=== PATIENT | male | born 1985 | race Asian ===

== ENCOUNTER 2021-08-27 05:13 | Inpatient (IN) | payer SELFPAY ==
[~2021-08-27] VITALS: Ht 175.3 cm; Wt 90.7 kg
[2021-08-27] VITALS (17 sets, daily range): BP systolic 99–135; BP diastolic 47–82
[2021-08-27] MEDS ORDERED: fentaNYL INJ 100 MCG/2 ML AMP IVP ONE (06:30)
[2021-08-27] MEDS ORDERED: LIDOCAINE UROJET 2% GEL 10 ML PKG TOP ONE (06:30)
--- NOTE | 2021-08-27 06:48 | ED General ---
General Chief Complaint: Abdominal/GI Problems Stated Complaint: CONSTIPATED Nursing Triage Note: Pt arrives via POV from home for c/o constipation x4 days et inability to urinate x24hrs; states he was given medication at urgent care without relief; also took "an sing[place]an home remedy" states had a liquid BM after this. Source of Information: Patient Exam Limitations: No Limitations History of Present Illness Date Seen by Provider: Aug 27, 2021 Time Seen by Provider: 18:05 Initial Comments This 36-year-old gentleman presents to the emergency room with complaints of lower abdominal and rectal pain, no significant bowel movement for 4 days, inability to urinate with notable urge, and tenderness in the anal region. He denies fever. He reports taking a powdered oral home remedy to try to treat constipation. He had a couple of small watery bowel movements but no significant bowel movements. He was seen in urgent care clinic yesterday and told he had some blood in his stool. He was advised to go to the emergency room. He reports being relatively healthy and never having any problems like this in the past. He denies any genital involvement. He takes no medications and has had no surgeries. He is afebrile. Bladder scan showed about 350 mL of retained urine. Patient states with his immigration medical exam over a month ago. Allergies and Home Medications Allergies Coded Allergies: No Known Drug Allergies (Unverified , 08/27/21) Patient Home Medication List Home Medication List Reviewed: Yes Review of Systems Review of Systems Constitutional: no symptoms reported EENTM: no symptoms reported Respiratory: no symptoms reported Cardiovascular: no symptoms reported Gastrointestinal: see HPI Genitourinary: see HPI Musculoskeletal: no symptoms reported Skin: see HPI Psychiatric/Neurological: No Symptoms Reported Hematologic/Lymphatic: No Symptoms Reported Immunological/Allergic: no symptoms reported Past Mvremms-Ohqhdn-Tdwest Hx Patient Social History Tobacco Use?: No Smoking Status: Former Smoker Use of E-Cig and/or Vaping dev: No Substance use?: No Alcohol Use?: No Pt feels they are or have been: No Immunizations Up To Date Influenza Vaccine Up-to-Date: Yes; Up-to-Date COVID19 Vaccine Canoe [employer]: Moderna Past Medical History Surgeries: No Respiratory: No Cardiac: No Neurological: No Reproductive Disorders: No Genitourinary: No Gastrointestinal: No Musculoskeletal: No Endocrine: No HEENT: No Cancer: No Psychosocial: No Integumentary: No Physical Exam Vital Signs Vital Signs - First Documented 08/27/21 05:55 Temp 36.8 Pulse 114 Resp 20 B/P (MAP) 136/97 (110) Pulse Ox 100 O2 Delivery Room Air Capillary Refill : Less Than 3 Seconds Height, Weight, BMI Height: '" Weight: lbs. oz. kg; 29.00 BMI Method: General Appearance: WD/WN, Mild Distress HEENT: Normal ENT Inspection Neck: Normal Inspection Respiratory: Lungs Clear, Normal Breath Sounds, No Accessory Muscle Use Cardiovascular: Regular Rate, Rhythm, No Edema, No Murmur Gastrointestinal: Normal Bowel Sounds, Non Tender, Soft; No Distended Rectal: Other (Perianal tenderness with erythema, induration, and severe tenderness of the right buttock near the anus. No overt superficial abscess is apparent. No bleeding or drainage identified.) Extremity: Normal Inspection, No Pedal Edema Neurologic/Psychiatric: Alert, Oriented x3, No Motor/Sensory Deficits, Normal Mood/Affect, career services representative II-XII Norm as Tested Skin: Normal Color, Warm/Dry Focused Exam Lactate Level 08/27/21 07:52: Lactic Acid Level Laboratory Tests Test 08/27/21 07:52 Progress/Results/Core Measures Suspected Sepsis SIRS Temperature: Pulse: 114 Respiratory Rate: 20 Laboratory Tests 08/27/21 06:53: White Blood Count 21.4H Blood Pressure 136 /97 Mean: 110 08/27/21 07:52: Laboratory Tests 08/27/21 06:53: Creatinine 1.22, Platelet Count 306, Total Bilirubin 1.2H 08/27/21 08:20: Results/Orders Lab Results Laboratory Tests Test 08/27/21 06:04 08/27/21 06:53 08/27/21 07:52 08/27/21 08:20 Range/Units Urine Color ORANGE Urine Clarity SL CLOUDY Urine pH 6.0 5-9 Urine Specific Randall 1.020 1.016-1.022 Urine Protein 1+ H NEGATIVE Urine Glucose (UA) NEGATIVE NEGATIVE Urine Ketones TRACE H NEGATIVE Urine Nitrite NEGATIVE NEGATIVE Urine Bilirubin NEGATIVE NEGATIVE Urine Urobilinogen 0.2 < = 1.0 MG/DL Urine Leukocyte Esterase NEGATIVE NEGATIVE Urine RBC (Auto) 1+ H NEGATIVE Urine RBC 0-2 /HPF Urine WBC NONE /HPF Urine Squamous Epithelial Cells 0-2 /HPF Urine Crystals NONE /LPF Urine Bacteria TRACE /HPF Urine Casts NONE /LPF Urine Mucus SMALL H /LPF Urine Culture Indicated NO White Blood Count 21.4 H 4.3-11.0 10^3/uL Red Blood Count 4.97 4.30-5.52 10^6/uL Hemoglobin 14.8 13.3-17.7 g/dL Hematocrit 43 40-54 % Mean Corpuscular Volume 86 80-99 fL Mean Corpuscular Hemoglobin 30 25-34 pg Mean Corpuscular Hemoglobin Concent 35 32-36 g/dL Red Cell Distribution Width 11.9 10.0-14.5 % Platelet Count 306 130-400 10^3/uL Mean Platelet Volume 9.8 9.0-12.2 fL Immature Granulocyte % (Auto) 1 % Neutrophils (%) (Auto) 89 H 42-75 % Lymphocytes (%) (Auto) 4 L 12-44 % Monocytes (%) (Auto) 5 0-12 % Eosinophils (%) (Auto) 0 0-10 % Basophils (%) (Auto) 0 0-10 % Neutrophils # (Auto) 19.0 H 1.8-7.8 10^3/uL Lymphocytes # (Auto) 0.9 L 1.0-4.0 10^3/uL Monocytes # (Auto) 1.2 H 0.0-1.0 10^3/uL Eosinophils # (Auto) 0.0 0.0-0.3 10^3/uL Basophils # (Auto) 0.1 0.0-0.1 10^3/uL Immature Granulocyte # (Auto) 0.3 H 0.0-0.1 10^3/uL Neutrophils % (Manual) 90 % Lymphocytes % (Manual) 2 % Monocytes % (Manual) 6 % Band Neutrophils 2 % Blood Morphology Comment NORMAL Sodium Level 132 L 135-145 MMOL/L Potassium Level 3.7 3.6-5.0 MMOL/L Chloride Level 97 L 98-107 MMOL/L Carbon Dioxide Level 22 21-32 MMOL/L Anion Gap 13 5-14 MMOL/L Blood Urea Nitrogen 12 7-18 MG/DL Creatinine 1.22 0.60-1.30 MG/DL Estimat Glomerular Filtration Rate 67 BUN/Creatinine Ratio 10 Glucose Level 104 70-105 MG/DL Calcium Level 9.7 8.5-10.1 MG/DL Corrected Calcium 9.7 8.5-10.1 MG/DL Total Bilirubin 1.2 H 0.1-1.0 MG/DL Aspartate Amino Transf (AST/SGOT) 28 5-34 U/L Alanine Aminotransferase (ALT/SGPT) 49 0-55 U/L Alkaline Phosphatase 109 40-136 U/L C-Reactive Protein High Sensitivity 21.47 H 0.00-0.50 MG/DL Total Protein 8.1 6.4-8.2 GM/DL Albumin 4.0 3.2-4.5 GM/DL My Orders Orders - ION GARDNER MD Bladder Scan (08/27/21 06:04) Ua Culture If Indicated (08/27/21 06:04) Abdomen/Kub 1view (08/27/21 06:04) Lidocaine 2% (Urojet) (Xylocaine Urojet) (08/27/21 06:30) Fentanyl Inj (Sublimaze Injection) (08/27/21 06:30) Cbc With Automated Diff (08/27/21 06:23) Comprehensive Metabolic Panel (08/27/21 06:23) Hs C Reactive Protein (08/27/21 06:23) Ed Iv/Invasive Line Start (08/27/21 06:23) Manual Differential (08/27/21 06:53) Morphine Injection (Morphine Injection (08/27/21 07:14) Ct Abdomen/Pelvis W (08/27/21 07:16) Iohexol Injection (Omnipaque 350 Mg/Ml 1 (08/27/21 07:45) Received Contrast (Hold Metformin- Contr (08/27/21 07:45) Sodium Chloride Flush (Catheter Flush Sy (08/27/21 07:45) Ns (Ivpb) (Sodium Chloride 0.9% Ivpb Bag (08/27/21 07:45) Blood Culture (08/27/21 07:39) Protime With Inr (08/27/21 07:39) Partial Thromboplastin Time (08/27/21 07:39) Vital Signs Adult Sepsis Patie Q15M (08/27/21 07:39) Remove Rings In Anticipation O (08/27/21 07:39) Lactic Acid Analyzer (08/27/21 07:39) Piperacillin Sodium/Tazobactam (Zosyn Vi (08/27/21 07:45) Hydromorphone Injection (Dilaudid Inject (08/27/21 08:15) Ns Iv 1000 Ml (Sodium Chloride 0.9%) (08/27/21 08:30) Medications Given in ED Current Medications Medications Dose Ordered Sig/Lenny Route Start Time Stop Time Status Last Admin Dose Admin Fentanyl Citrate 50 mcg ONCE ONCE IVP 08/27/21 06:30 08/27/21 06:32 DC 08/27/21 06:47 50 MCG Hydromorphone HCl 0.5 mg ONCE ONCE IV 08/27/21 08:15 08/27/21 08:16 DC 08/27/21 08:21 0.5 MG Iohexol 100 ml ONCE ONCE IV 08/27/21 07:45 08/27/21 07:46 DC 08/27/21 07:38 100 ML Lidocaine HCl 10 ml ONCE ONCE TOP 08/27/21 06:30 08/27/21 06:32 DC 08/27/21 06:40 10 ML Piperacillin Sod/ Tazobactam Sod 4.5 gm/Sodium Chloride 100 ml @ 200 mls/hr ONCE ONCE IV 08/27/21 07:45 08/27/21 08:14 DC 08/27/21 08:37 200 MLS/HR Sodium Chloride 10 ml NEEDED PRN IV 08/27/21 07:45 08/27/21 07:38 10 ML Sodium Chloride 100 ml ONCE ONCE IV 08/27/21 07:45 08/27/21 07:46 DC 08/27/21 07:38 80 ML Vital Signs/I&O 08/27/21 05:55 Temp 36.8 Pulse 114 Resp 20 B/P (MAP) 136/97 (110) Pulse Ox 100 O2 Delivery Room Air Capillary Refill : Less Than 3 Seconds 2 Blood Pressure Mean: 110 Progress Note #1: Time: 06:57 Progress Note Patient was seen and examined. Bladder scan showed approximately 350 mL residual. We will place a Fernandez catheter. Fentanyl is being given for pain. Labs are pending. I suspect this patient has a perianal infection or abscess contributing to his symptoms. Pending labs we will likely pursue CT imaging. Progress Note #2: Time: 08:[address] scan was obtained which revealed a large perirectal abscess. Patient meets septic criteria. Blood cultures and lactic acid were drawn. Zosyn is being administered for initial antibiotic therapy. Pain was initially treated with fentanyl. Morphine was added. He was still having significant discomfort, particularly with the catheter. Dilaudid was added. Case was reviewed with Dr. Agee. He would like to take him to the OR soon for incision and drainage. He requested that the catheter remain in as it will be needed for surgery and may be difficult to replace if it is removed now. I have reviewed the medical findings and treatment plan with the patient. We have discussed the necessity for surgery. Consent has been reviewed with risks and benefits and signed by the patient. Patient will be admitted with Zosyn antibiotic therapy, IV fluids, and symptom management until his surgery. Diagnostic Imaging Diagonstic Imaging: Xray Plain Films/CT/US/NM/MRI: abdomen, pelvis Comments KUB viewed by me and report reviewed. See report below: NAME: DANE WILLS [facility] REC#: [id number] PT STATUS: REG ER : 1985 PHYSICIAN: ION GARDNER MD ADMIT DATE: 08/27/21/ER Signed Date of Exam:08/27/21 ABDOMEN/KUB 1VIEW INDICATION: Abdominal pain FINDINGS: The bowel gas pattern is nonspecific. There are no abnormal abdominal calcifications. The osseous structures are unremarkable. IMPRESSION: Nonspecific bowel gas pattern. Dictated by: Dictated on workstation # [id number] Dict: 08/27/21709 Trans: 08/27/21727 [facility] [id number] Interpreted by: RAFAEL LOWERY MD Electronically signed by: RAFAEL LOWERY MD 08/27/21727 Comments [facility] [id number] PT STATUS: REG ER : 1985 PHYSICIAN: ION GARDNER MD ADMIT DATE: 08/27/21/ER Draft Date of Exam:08/27/21 CT ABDOMEN/PELVIS W Clinical indications: Patient with abdominal and rectal pain. Questionable rectal abscess. EXAM: Axial CT scan abdomen and pelvis performed with 100 mL of Omnipaque 350 IV contrast. Sagittal and coronal reformatted images are created. COMPARISON: None. FINDINGS: Visualized lung bases are clear. Bones show no significant abnormality. There is diffuse low-density throughout the liver seen which may BE related to diffuse fatty infiltration. Liver is otherwise unremarkable. The spleen, pancreas, gallbladder, and adrenal glands are unremarkable. Both kidneys are unremarkable with no hydronephrosis, mass, or stone. There is Fernandez catheter within the bladder and bladder is decompressed. There is no intra-abdominal free air or free fluid. Appendix is unremarkable. There is no intestinal obstruction. There is no significant lymphadenopathy. There is soft tissue thickening in the region of the anus. There is low density with peripheral enhancement seen in the region of the anus and involving the medial buttock regions. There is small amount of adjacent fat stranding. These findings are concerning for perirectal abscess. Given the continuous and lobulated appearance of these fluid collections in the perirectal region, its difficult to measure in its entirety. This area measures roughly 6.1 cm x 4.3 cm x 7.0 cm (AP x Trans x CC) . There is no other extra abdominal or extrapelvic soft tissue abnormality. IMPRESSION: 1: There is soft tissue thickening in the region of the anus. There is low-density with peripheral enhancement surrounding the perianal/rectal region with adjacent soft tissue fat stranding. This is concerning for kareem-rectal/perianal abscess. This is described above. 2: Fernandez catheter is in the bladder. 3: There is diffuse low-density throughout the liver which may related to diffuse fatty infiltration. 4: The remainder of this exam shows no other significant abnormality. Dictated on workstation # [id number] Dict: 08/27/21 0755 Trans: 08/27/[address] [place] [address] [id number] Interpreted by: SHMUEL ULLOA MD Departure Communication (Admissions) Time/Spoke to Admitting Phy: 08:05 Dr. Agee Impression Primary Impression: Sepsis Qualified Codes: A41.9 - Sepsis, unspecified organism Additional Impression: Perirectal abscess Disposition: ADMITTED INPATIENT Condition: Stable Admissions Decision to Admit Reason: Admit from ER (General) Decision to Admit/Date: Aug 27, 2021 Time/Decision to Admit Time: 07:35 ION GARDNER MD Aug 27, 2021 06:48
[2021-08-27 06:56] LABS: BASOPHILS # (AUTO) 0.1 10^3/uL (0.0-0.1); BASOPHILS % (AUTO) 0 % (0-10); EOSINOPHILS % (AUTO) 0 % (0-10); HEMATOCRIT 43 % (40-54); HEMOGLOBIN 14.8 g/dL (13.3-17.7); LYMPHOCYTES # (AUTO) 0.9 10^3/uL (1.0-4.0); LYMPHOCYTES % (AUTO) 4 % (12-44); MEAN CORPUSCULAR HEMOGLOBIN 30 pg (25-34); MEAN CORPUSCULAR HGB CONC 35 g/dL (32-36); MEAN CORPUSCULAR VOLUME 86 fL (80-99); MEAN PLATELET VOLUME 9.8 fL (9.0-12.2); MONOCYTES # (AUTO) 1.2 10^3/uL (0.0-1.0); MONOCYTES % (AUTO) 5 % (0-12); NEUTROPHILS % (AUTO) 89 % (42-75); PLATELET COUNT 306 10^3/uL (130-400); WHITE BLOOD COUNT 21.4 10^3/uL (4.3-11.0)
[2021-08-27 06:58] LABS: BILIRUBIN,URINE NEGATIVE (NEGATIVE); CLARITY,URINE SL CLOUDY; COLOR,URINE ORANGE; GLUCOSE, URINE (UA) NEGATIVE (NEGATIVE); KETONES,URINE TRACE (NEGATIVE); LEUKOCYTE ESTERASE ,URINE NEGATIVE (NEGATIVE); NITRITE,URINE NEGATIVE (NEGATIVE); PROTEIN,URINE 1+ (NEGATIVE)
[2021-08-27 07:10] LABS: BACTERIA,URINE TRACE /HPF; RBC,URINE 0-2 /HPF; SQUAMOUS EPITHELIAL CELL,UR 0-2 /HPF
[2021-08-27 07:14] LABS: POTASSIUM 3.7 MMOL/L (3.6-5.0)
[2021-08-27] MEDS ORDERED: morphine INJ 10 MG/ML 1ML (SYR OR VIAL) IVP STA (07:14)
[2021-08-27 07:15] LABS: CALCIUM 9.7 MG/DL (8.5-10.1)
[2021-08-27 07:16] LABS: TOTAL PROTEIN 8.1 GM/DL (6.4-8.2)
[2021-08-27 07:18] LABS: BILIRUBIN,TOTAL 1.2 MG/DL (0.1-1.0)
--- NOTE | 2021-08-27 07:19 | Diagnostic Imaging Report ---
INDICATION: Abdominal pain FINDINGS: The bowel gas pattern is nonspecific. There are no abnormal abdominal calcifications. The osseous structures are unremarkable. IMPRESSION: Nonspecific bowel gas pattern. Dictated by: Dictated on workstation # [id number]
[2021-08-27 07:20] LABS: CREATININE SERUM 1.22 MG/DL (0.60-1.30)
[2021-08-27] MEDS ORDERED: NS 100 ML (IVPB) BAG IV ONE (07:45)
[2021-08-27] MEDS ORDERED: CATHETER FLUSH 10 ML SYR IV PRN (07:45)
[2021-08-27] MEDS ORDERED: HOLD METFORMIN - RECEIVED CONTRAST 20 ML VIAL IV SCH (07:45)
[2021-08-27] MEDS ORDERED: PIPERACILLIN SODIUM/TAZOBACTAM 4.5 GM in NS (IVPB) 100 ML IV ONE (07:45)
[2021-08-27] MEDS ORDERED: IOHEXOL 350 MG/ML 100 ML (OMNIPAQUE 350) VIAL IV ONE (07:45)
[2021-08-27 07:49] LABS: BAND NEUTROPHILS 2 %; LYMPHOCYTES % (MANUAL) 2 %; MONOCYTES % (MANUAL) 6 %; NEUTROPHILS % (MANUAL) 90 %; RBC MORPH NORMAL
--- NOTE | 2021-08-27 08:12 | Diagnostic Imaging Report ---
Clinical indications: Patient with abdominal and rectal pain. Questionable rectal abscess. EXAM: Axial CT scan abdomen and pelvis performed with 100 mL of Omnipaque 350 IV contrast. Sagittal and coronal reformatted images are created. COMPARISON: None. FINDINGS: Visualized lung bases are clear. Bones show no significant abnormality. There is diffuse low-density throughout the liver seen which may BE related to diffuse fatty infiltration. Liver is otherwise unremarkable. The spleen, pancreas, gallbladder, and adrenal glands are unremarkable. Both kidneys are unremarkable with no hydronephrosis, mass, or stone. There is Fernandez catheter within the bladder and bladder is decompressed. There is no intra-abdominal free air or free fluid. Appendix is unremarkable. There is no intestinal obstruction. There is no significant lymphadenopathy. There is soft tissue thickening in the region of the anus. There is low density with peripheral enhancement seen in the region of the anus and involving the medial buttock regions. There is small amount of adjacent fat stranding. These findings are concerning for perirectal abscess. Given the continuous and lobulated appearance of these fluid collections in the perirectal region, its difficult to measure in its entirety. This area measures roughly 6.1 cm x 4.3 cm x 7.0 cm (AP x Trans x CC) . There is no other extra abdominal or extrapelvic soft tissue abnormality. IMPRESSION: 1: There is soft tissue thickening in the region of the anus. There is low-density with peripheral enhancement surrounding the perianal/rectal region with adjacent soft tissue fat stranding. This is concerning for kareem-rectal/perianal abscess. This is described above. 2: Fernandez catheter is in the bladder. 3: There is diffuse low-density throughout the liver which may related to diffuse fatty infiltration. 4: The remainder of this exam shows no other significant abnormality. Dictated by: Dictated on workstation # [id number]
[2021-08-27] MEDS ORDERED: HYDROmorphone 2 MG/ML VIAL (DILAUDID) IV ONE (08:15)
[2021-08-27] MEDS ORDERED: NS IV 1000 ML 1,000 ML IV SCH (08:30)
[2021-08-27 08:51] LABS: INR 1.3 (0.8-1.4); PROTHROMBIN TIME PATIENT 16.6 SEC (12.2-14.7)
--- NOTE | 2021-08-27 09:14 | History & Physical-Surgical ---
[facility] 08/27/21 0914: History of Present Illness History of Present Illness Reason for visit/HPI Rectal pain Date of Admission 08/27/21 Date Seen by a Provider: Aug 27, 2021 Time Seen by a Provider: 09:08 I consulted on this patient on 08/27/21 09:08 Attending Physician Rico Agee DO Admitting Physician Rico Agee DO Consult Perirectal abscess 36 yo previously health male presents with CT findings showing soft tissue thickening in the region of the anus. There is low-density with peripheral enhancement surrounding the perianal/rectal region with adjacent soft tissue fat stranding. This is concerning for kareem-rectal/perianal abscess. Other notable lab is a WBC of 21.4. Patient reports having progressively worsening rectal pain for the past 4 days. States that he presented to the urgent care yesterday (08/26/21) and they performed a JOHANN. Findings were significant for pain and blood. Patient was told to report to the ED, but did not due to financial concerns. Today, patient reports constant pain, that radiates to the groin. States that it is a pressure like feeling. This pain is worse with active movement. He also reports feelings of constipation, and urinary retention. Patient is receiving IV Zosyn. Denies history of crohn's, ulcerative colitis, trauma to the area, or nausea/vomiting. Reports last meal was 24 hrs ago. Allergies and Home Medications Allergies Coded Allergies: No Known Drug Allergies (Unverified , 08/27/21) Patient Home Medication List Home Medication List Reviewed: Yes Past Uzqtkxz-Irrnmj-Szcmmj Hx Patient Social History Tobacco Use?: Yes Tobacco type used: Cigarettes Smoking Status: Light Tobacco Smoker Use of E-Cig and/or Vaping dev: No Substance use?: No Alcohol Use?: No Pt feels they are or have been: No Current Status Advance Directives: No Communicates: Verbally Primary Language: Tajik Preferred Spoken Language: Tajik Is interpretation needed?: No Implanted or Applied Medical D: None Family Medical History Reviewed Nursing Family Hx Review of Systems Constitutional: chills, fever EENTM: No ear pain, No eye pain Respiratory: No cough, No dyspnea on exertion Cardiovascular: No chest pain, No palpitations Gastrointestinal: No abdominal pain, No nausea, No vomiting Genitourinary: hesitancy, other (Retention) Musculoskeletal: No joint pain, No joint swelling Skin: No dryness, No rash; other Psychiatric/Neurological: Headache; Denies Numbness No history of bruising or bleeding Physical Exam Vital Signs Vital Signs - First Documented 08/27/21 05:55 Temp 36.8 Pulse 114 Resp 20 B/P (MAP) 136/97 (110) Pulse Ox 100 O2 Delivery Room Air Capillary Refill : Less Than 3 Seconds Height, Weight, BMI Height: '" Weight: lbs. oz. kg; 29.00 BMI Method: General Appearance: No Apparent Distress, WD/WN Eyes: Bilateral Eye PERRL, Bilateral Eye EOMI HEENT: PERRL/EOMI, Normal ENT Inspection (No gross deformities) Neck: Non Tender, Supple Respiratory: Chest Non Tender, Lungs Clear, Normal Breath Sounds, No Accessory Muscle Use, No Respiratory Distress Cardiovascular: Tachycardia, Other (Regular Rhythm) Gastrointestinal: Non Tender, Soft Rectal: Tenderness (on palpation), Other (Indurated tissue next to the anus) Back: Normal Inspection, No CVA Tenderness Extremity: Normal Inspection (No gross deformities), No Calf Tenderness Neurologic/Psychiatric: Alert, Oriented x3 Skin: Normal Color (except for rectal exam), Warm/Dry (Execpt for rectal exam) Lymphatic: No Adenopathy (Posterior auricular or supraclavicular) Data Review Labs Laboratory Tests 08/27/21 06:04: Urine Color ORANGE, Urine Clarity SL CLOUDY, Urine pH 6.0, Urine Specific [place] 1.020, Urine Protein 1+H, Urine Glucose (UA) NEGATIVE, Urine Ketones TRACEH, Urine Nitrite NEGATIVE, Urine Bilirubin NEGATIVE, Urine Urobilinogen 0.2, Urine Leukocyte Esterase NEGATIVE, Urine RBC (Auto) 1+H, Urine RBC 0-2, Urine WBC NONE, Urine Squamous Epithelial Cells 0-2, Urine Crystals NONE, Urine Bacteria TRACE, Urine Casts NONE, Urine Mucus SMALLH, Urine Culture Indicated NO 08/27/21 06:53: White Blood Count 21.4H, Red Blood Count 4.97, Hemoglobin 14.8, Hematocrit 43, Mean Corpuscular Volume 86, Mean Corpuscular Hemoglobin 30, Mean Corpuscular Hemoglobin Concent 35, Red Cell Distribution Width 11.9, Platelet Count 306, Mean Platelet Volume 9.8, Immature Granulocyte % (Auto) 1, Neutrophils (%) (Auto) 89H, Lymphocytes (%) (Auto) 4L, Monocytes (%) (Auto) 5, Eosinophils (%) (Auto) 0, Basophils (%) (Auto) 0, Neutrophils # (Auto) 19.0H, Lymphocytes # (Auto) 0.9L, Monocytes # (Auto) 1.2H, Eosinophils # (Auto) 0.0, Basophils # (Auto) 0.1, Immature Granulocyte # (Auto) 0.3H, Neutrophils % (Manual) 90, Lymphocytes % (Manual) 2, Monocytes % (Manual) 6, Band Neutrophils 2, Blood Morphology Comment NORMAL, Sodium Level 132L, Potassium Level 3.7, Chloride Level 97L, Carbon Dioxide Level 22, Anion Gap 13, Blood Urea Nitrogen 12, Creatinine 1.22, Estimat Glomerular Filtration Rate 67, BUN/Creatinine Ratio 10, Glucose Level 104, Calcium Level 9.7, Corrected Calcium 9.7, Total Bilirubin 1.2H, Aspartate Amino Transf (AST/SGOT) 28, Alanine Aminotransferase (ALT/SGPT) 49, Alkaline Phosphatase 109, C-Reactive Protein High Sensitivity 21.47H, Total Protein 8.1, Albumin 4.0 08/27/21 07:52: Lactic Acid Level 1.41 08/27/21 08:20: Prothrombin Time 16.6H, INR Comment 1.3, Activated Partial Thromboplast Time 43H Assessment/Plan Assessment/Plan Admission Diagonsis Perirectal abscess Admission Status: Inpatient Order (span 2 midnights) Reason for Inpatient Admission: Perirectal abscess Assessment/Plan Perirectal abscess Sepsis secondary to abscess Schedule and consent for OR I&D with possible drain placement Continue IV antibiotics Continue IV fluids Continue NPO status RICO AGEE DO 08/27/21 1209: History of Present Illness History of Present Illness Reason for visit/HPI Rectal pain.Perirectal abscess 36 yo previously health male presents with CT findings showing soft tissue thickening in the region of the anus. There is low-density with peripheral enhancement surrounding the perianal/rectal region with adjacent soft tissue fat stranding. This is concerning for kareem-rectal/perianal abscess. Other notable lab is a WBC of 21.4. Patient reports having progressively worsening rectal pain for the past 4 days. States that he presented to the urgent care yesterday (08/26/21) and they performed a JOHANN. Findings were significant for pain and blood. Patient was told to report to the ED, but did not due to financial concerns. Today, patient reports constant pain, that radiates to the groin. States that it is a pressure like feeling. This pain is worse with active movement. He also reports feelings of constipation, and urinary retention. Patient is receiving IV Zosyn. Denies history of crohn's, ulcerative colitis, trauma to the area, or nausea/vomiting. Reports last meal was 24 hrs ago. CC: Dysuria/rectal pain. Patient is a 36 year old male 4 days of rectal pain worsening. Difficulty urinating. Pain continued to worsen ad severe pain. Constant pressure type pain. Radiates towards groin. Was seen at urgent care yesterday and was told to go to ER but didn't. Since worsening presented to ED today. Having some fever/chills. Patient denies n/v sweats shorntess of breath or chest pain. Ct scan with perirectal stranding and suggestive of abscess. Allergies and Home Medications Allergies Coded Allergies: No Known Drug Allergies (Unverified , 08/27/21) Patient Home Medication List Home Medication List Reviewed: Yes Past Zkemgha-Kqwesa-Vmzbbi Hx Family Medical History No Pertinent Family Hx Review of Systems Constitutional: chills, fever EENTM: No ear pain, No eye pain Respiratory: No cough, No dyspnea on exertion Cardiovascular: No chest pain, No palpitations Gastrointestinal: No abdominal pain, No nausea, No vomiting Genitourinary: dysuria, hesitancy, other (Retention) Musculoskeletal: No joint pain, No joint swelling Skin: No dryness, No rash; other (skin changes right buttock) Psychiatric/Neurological: Headache; Denies Numbness All Other Systems Reviewed Negative Unless Noted: Yes (Negative excepted noted.) Physical Exam General Appearance: No Apparent Distress, WD/WN HEENT: PERRL/EOMI, Normal ENT Inspection (No gross deformities) Neck: Non Tender, Supple Respiratory: Chest Non Tender, No Accessory Muscle Use, No Respiratory Distress Cardiovascular: No JVD, Tachycardia, Other (Regular Rhythm) Gastrointestinal: Non Tender, Soft Rectal: Tenderness (on palpation), Other (Indurated tissue next to the anus, slight fluctuant feel.) Back: Normal Inspection, No CVA Tenderness Extremity: Normal Inspection (No gross deformities), No Calf Tenderness Neurologic/Psychiatric: Alert, Oriented x3 Skin: Normal Color (except for perianal area), Warm/Dry (Execpt heat around perianal area) Lymphatic: No Adenopathy (Posterior auricular or supraclavicular) Assessment/Plan Assessment/Plan Admission Diagonsis Sepsis secondary to Perirectal absess Admission Status: Inpatient Order (span 2 midnights) Reason for Inpatient Admission: Sepsis secondary to Perirectal absess - will need IV abx, surgical intervention and wound care. Patient will be here for greater than 2 midnights. Assessment/Plan Perirectal abscess Sepsis secondary to abscess Schedule and consent for OR I&D with possible drain placement Continue IV antibiotics Continue IV fluids Continue NPO status Supervisory-Addendum Brief Verification & Attestation Participated in pt care: history, MDM, physical Personally performed: exam, history, MDM, supervision of care Care discussed with: Medical Student Procedures: n/a Results interpretation: Verified all documentation Verification and Attestation of Medical Student E/M Service A medical student performed and documented this service in my presence. I reviewed and verified all information documented by the medical student and made modifications to such information, when appropriate. I personally performed the physical exam and medical decision making. Rico Agee, Aug 27, 2021,12:14 [facility] Aug 27, 2021 09:14 RICO AGEE DO Aug 27, 2021 12:09
[2021-08-27] MEDS ORDERED: PIPERACILLIN SODIUM/TAZOBACTAM 4.5 GM in NS (IVPB) 100 ML IV NR (10:09)
[2021-08-27] MEDS ORDERED: HYDROmorphone 2 MG/ML VIAL (DILAUDID) IV PRN ×2 (10:15)
[2021-08-27] MEDS ORDERED: ONDANSETRON 4 MG/2 ML (SDV) Z0FRAN IVP PRN (10:15)
[2021-08-27] MEDS ORDERED: LIDOCAINE/EPI 1%-1:200,000 (XYLOCAINE) 30 ML VIAL ONE (10:46)
[2021-08-27] MEDS ORDERED: proPOfol 200 MG/20 ML (DIPRIVAN) VIAL IV ONE (11:15)
[2021-08-27] MEDS ORDERED: MIDAZOLAM 2 MG/2 ML (VERSED) VIAL ONE (11:15)
[2021-08-27] MEDS ORDERED: fentaNYL INJ 100 MCG/2 ML AMP ONE (11:15)
[2021-08-27] MEDS ORDERED: SEVOFLURANE (ULTANE) 15 ML INHAL SOLN ONE (11:15)
[2021-08-27] MEDS ORDERED: ONDANSETRON 4 MG/2 ML (SDV) Z0FRAN ONE (11:15)
[2021-08-27] MEDS: LACTATED RINGERS 1,000 ML IV SCH ×2 (11:17→16:55)
[2021-08-27] MEDS ORDERED: LACTATED RINGERS 1,000 ML IV PRN (12:15)
[2021-08-27] MEDS ORDERED: morphine INJ 10 MG/ML 1ML (SYR OR VIAL) ONE (12:26)
[2021-08-27] MEDS ORDERED: metroNIDAZOLE 500MG/100ML IVPB 100 ML ONE (12:48)
[2021-08-27] MEDS: metroNIDAZOLE 500MG/100ML IVPB 100 ML IV SCH ×2 (12:50→22:05)
--- NOTE | 2021-08-27 12:54 | Progress Note-Post Operative ---
Post-Operative Progess Note Surgeon (s)/Rubber Calender Helper (s) Surgeon RICO HEATH DO Rubber Calender Helper: NA Pre-Operative Diagnosis PERIRECTAL ABSCESS Post-Operative Diagnosis SAME Procedure & Operative Findings Date of Procedure 08/27/21 Procedure Performed/Findings INCISION AND DRAINAGE WITH WASHOUT AND ELLIOTT DRAIN PLACEMENT Anesthesia Type GENERAL Estimated Blood Loss Estimated blood loss (mL): MINIMAL Specimens/Packing Specimens Removed CULTURE RICO HEATH DO Aug 27, 2021 12:54
[2021-08-27] MEDS ORDERED: ACETAMINOPHEN 325 MG TABLET PO PRN (13:00)
--- NOTE | 2021-08-27 13:04 | Anesthesia-General Post-Op ---
General Patient Condition Mental Status/LOC: Same as Preop Cardiovascular: Satisfactory Nausea/Vomiting: Absent Respiratory: Satisfactory Pain: Controlled Complications: Absent Post Op Complications Complications None Follow Up Care/Instructions Patient Instructions None needed. Anesthesia/Patient Condition Patient Condition Patient is doing well, no complaints, stable vital signs, no apparent adverse anesthesia problems. No complications reported per nursing. TJ OVALLES CRNA Aug 27, 2021 13:04
[2021-08-27] MEDS ORDERED: LIDOCAINE PF 2% 5 ML (XYLOCAINE) VIAL ONE (13:08)
[2021-08-27] MEDS: PIPERACILLIN SODIUM/TAZOBACTAM 4.5 GM in NS (IVPB) 100 ML IV SCH (18:12)
--- NOTE | 2021-08-27 23:40 | OPERATIVE REPORT ---
DATE OF SERVICE: 08/27/2021 PREOPERATIVE DIAGNOSIS: Perirectal abscess. POSTOPERATIVE DIAGNOSIS: Perirectal abscess. PROCEDURE: Incision and drainage of perirectal abscess with washout and drain placement. SURGEON: Rico Agee DO ANESTHESIA: General. ESTIMATED BLOOD LOSS: Minimal. COMPLICATIONS: None. INDICATIONS: The patient is a 36-year-old male who presented and found to have a perirectal abscess. He is septic. The patient was explained the risks and benefits of procedure and wished to proceed. Consent was signed in the chart. DESCRIPTION OF PROCEDURE: The patient was taken to the operating suite, placed in lithotomy position, prepped and draped in sterile fashion. Timeout was performed. Digital rectal exam was performed. Anteriorly, the tissues were soft, but the lateral and posterior of the rectum extreme firmness and fluctuance present. Towards the right lateral side of the buttocks, lot of induration as well just to the right of the anus. A 15-blade scalpel was used to make incision over the area of firmness and finger was then started to bluntly dissect down through the subcutaneous tissue and significant amount of purulent material erupted, culture was obtained. Lot of loculations present through this area, which ran perirectally. The wound was then irrigated with copious amounts of irrigation. A [place] drain was then placed lateral to the rectum and then secured with 3-0 nylon through the incision. The area was then washed and dried and sterile bandages were applied. The patient tolerated procedure well without any complications, taken to recovery room in stable condition. Job ID: [id number] DocumentID: [id number] Dictated Date: 08/27/2021 21:49:00 Clinical Systems Educator Date: 08/27/2021 23:39:38 Dictated By: RICO AGEE DO
[2021-08-28] MEDS: PIPERACILLIN SODIUM/TAZOBACTAM 4.5 GM in NS (IVPB) 100 ML IV SCH ×3 (02:04→17:48)
[2021-08-28] MEDS: LACTATED RINGERS 1,000 ML IV SCH ×4 (02:04→19:30)
[2021-08-28 04:59] VITALS: BP 124/73
[2021-08-28] MEDS: metroNIDAZOLE 500MG/100ML IVPB 100 ML IV SCH ×3 (06:04→21:30)
[2021-08-28 06:35] LABS: HEMATOCRIT 40 % (40-54); HEMOGLOBIN 13.9 g/dL (13.3-17.7); MEAN CORPUSCULAR HEMOGLOBIN 30 pg (25-34); MEAN CORPUSCULAR HGB CONC 34 g/dL (32-36); MEAN CORPUSCULAR VOLUME 86 fL (80-99); MEAN PLATELET VOLUME 10.3 fL (9.0-12.2); PLATELET COUNT 293 10^3/uL (130-400); WHITE BLOOD COUNT 20.1 10^3/uL (4.3-11.0)
[2021-08-28 06:47] LABS: POTASSIUM 3.9 MMOL/L (3.6-5.0)
[2021-08-28 06:52] LABS: CREATININE SERUM 0.84 MG/DL (0.60-1.30)
--- NOTE | 2021-08-28 07:48 | Progress Note - Surgery ---
[facility] 08/28/21 0748: Subjective Date Seen by a Provider: Aug 28, 2021 Time Seen by a Provider: 07:42 Subjective/Events-last exam POD 1 S/P Incision and drainage of perirectal abscess with washout and drain placement Afebrile, No acute events overnight Patient reports feeling much better. Denies fevers, chills, nausea, vomiting WBC at 20.1, Ludwig still present Review of Systems General: No Chills, No Other (fevers) Pulmonary: No Dyspnea, No Cough Cardiovascular: No: Chest Pain, Palpitations Gastrointestinal: No: Nausea, Vomiting, Abdominal Pain Focused Exam Lactate Level 08/27/21 07:52: Lactic Acid Level 1.41 Objective Exam Vital Signs Date Time Temp Pulse Resp B/P (MAP) Pulse Ox O2 Delivery O2 Flow Rate FiO2 08/28/21 04:59 36.2 89 20 124/73 (90) 98 Room Air 08/27/21 23:24 35.2 87 18 116/76 (89) 98 Room Air 08/27/21 20:23 35.3 98 18 126/78 (94) 96 Room Air 08/27/21 20:12 95 Room Air 08/27/21 20:01 Room Air 08/27/21 16:02 35.4 98 18 115/73 (87) 95 Room Air 08/27/21 14:58 37.4 104 20 118/69 (85) 93 Room Air 08/27/21 14:43 37.7 103 16 111/71 (84) 96 Room Air 08/27/21 14:38 103 20 109/70 (83) 94 Room Air 08/27/21 14:10 Nasal Cannula 2 08/27/21 14:10 37.2 18 113/72 (86) 96 Nasal Cannula 2 08/27/21 14:09 36.2 106 18 109/70 (83) 96 2.00 08/27/21 14:00 18 111/68 (82) 96 Nasal Cannula 2 08/27/21 14:00 Nasal Cannula 2 08/27/21 13:55 Room Air 08/27/21 13:50 18 115/70 (85) 95 OxyMask 3 08/27/21 13:50 OxyMask 3 08/27/21 13:42 OxyMask 6 08/27/21 13:40 18 108/67 (81) 95 OxyMask 6 08/27/21 13:33 OxyMask 6 08/27/21 13:30 18 108/59 (75) 96 OxyMask 6 08/27/21 13:24 OxyMask 6 08/27/21 13:20 18 99/60 (73) 95 OxyMask 6 08/27/21 13:18 OxyMask 6 08/27/21 13:14 OxyMask 6 08/27/21 13:10 18 102/47 (65) 93 OxyMask 6 08/27/21 13:01 OxyMask 6 08/27/21 13:01 37.8 16 99/54 (69) 93 OxyMask 6 08/27/21 12:00 38.0 113 20 135/82 (99) 97 Room Air 08/27/21 11:51 Room Air 08/27/21 11:25 38.0 113 20 135/82 (99) 97 Room Air 08/27/21 09:39 116 18 124/64 68 Room Air I & O 08/28/21 07:00 Intake Total 3090 ml Output Total 2675 ml Balance 415 ml Capillary Refill : Less Than 3 Seconds General Appearance: No Apparent Distress, WD/WN HEENT: PERRL/EOMI, Normal ENT Inspection (No gross deformities) Neck: Non Tender, Supple Respiratory: Chest Non Tender, No Accessory Muscle Use, No Respiratory Distress Cardiovascular: Regular Rate, Rhythm, No JVD Peripheral Pulses: 2+ Radial Pulses (R), 2+ Radial Pulses (L) Gastrointestinal: non tender, soft Extremity: Normal Inspection (No gross deformities), No Calf Tenderness Neurologic/Psychiatric: Alert, Oriented x3 Skin: Normal Color (except for perianal area), Warm/Dry (Execpt heat around perianal area) Lymphatic: No Adenopathy (Posterior auricular or supraclavicular) Other comments Rectal Exam: Swelling decreased, Overall improved. [place] with minimal purulent drainage Results Lab Laboratory Tests 08/27/21 07:52: Lactic Acid Level 1.41 08/27/21 08:20: Prothrombin Time 16.6H, INR Comment 1.3, Activated Partial Thromboplast Time 43H 08/28/21 05:59: White Blood Count 20.1H, Red Blood Count 4.70, Hemoglobin 13.9, Hematocrit 40, Mean Corpuscular Volume 86, Mean Corpuscular Hemoglobin 30, Mean Corpuscular Hemoglobin Concent 34, Red Cell Distribution Width 11.9, Platelet Count 293, Mean Platelet Volume 10.3, Sodium Level 134L, Potassium Level 3.9, Chloride Level 101, Carbon Dioxide Level 23, Anion Gap 10, Blood Urea Nitrogen 14, Creatinine 0.84, Estimat Glomerular Filtration Rate 103, BUN/Creatinine Ratio 17, Glucose Level 121H, Calcium Level 9.0 Assessment/Plan Assessment/Plan Assessment/Plan Perirectal abscess Sepsis secondary to abscess Continue IV antibiotics Continue IV fluids Continue pain management Advance diet to softs DVT prophylaxis with scd's and eliquis Change dressings Once a day, Will become more difficult to maintain clean dressings as patient develops return of Bowel function Discontinue ludwig Out of bed activity as tolerated STACI ALARCON DO 08/28/21 1114: Subjective Time Seen by a Provider: 10:01 Subjective/Events-last exam Pt seen and examined, appears comfortable in bed. States pain is controlled. Review of Systems General: No Chills Pulmonary: No Dyspnea, No Cough Cardiovascular: No: Chest Pain, Palpitations Gastrointestinal: No: Nausea, Vomiting, Abdominal Pain Objective Exam General Appearance: No Apparent Distress, WD/WN Respiratory: Chest Non Tender, Lungs Clear, Normal Breath Sounds, No Accessory Muscle Use, No Respiratory Distress Cardiovascular: Regular Rate, Rhythm, No Murmur Gastrointestinal: non tender, soft Skin: Other (kareem-rectal incision with scant purulent drainage, boubacar drain sutured in place) Assessment/Plan Assessment/Plan Assessment/Plan Perirectal abscess Sepsis secondary to abscess Will D/C ludwig, continue IV antibiotics, IV fluids, pain management. Advance diet to soft, DVT prophylaxis with scd's and eliquis Change dressings Once a day, Will become more difficult to maintain clean dressings as patient develops return of Bowel function Encourage ambulation and IS use Supervisory-Addendum Brief Verification & Attestation Participated in pt care: history, MDM, physical Personally performed: exam, history, MDM, supervision of care Care discussed with: Medical Student Procedures: n/a Verification and Attestation of Medical Student E/M Service A medical student performed and documented this service. I then reviewed and verified all information documented by the medical student and made modifications to such information, when appropriate. I personally performed a physical exam, medical decision making and then discussed any differences betwe en the notes and made revisions as necessary to create one note. Staci Alarcon , 08/28/21 , 11:14 [facility] Aug 28, 2021 07:48 STACI ALARCON DO Aug 28, 2021 11:14
[2021-08-28 08:13] VITALS: BP 122/80
[2021-08-28] MEDS ORDERED: CATHETER FLUSH 10 ML SYR IV PRN (09:15)
[2021-08-28 12:30] VITALS: BP 128/74
[2021-08-28 16:03] VITALS: BP 130/74
[2021-08-28 19:53] VITALS: BP 120/70
[2021-08-28] MEDS: HYDROcodone/APAP 5 MG/325 MG (LORTAB) TAB PO PRN (21:34)
[2021-08-29 00:09] VITALS: BP 121/70
[2021-08-29] MEDS: LACTATED RINGERS 1,000 ML IV SCH ×3 (01:19→18:00)
[2021-08-29] MEDS: PIPERACILLIN SODIUM/TAZOBACTAM 4.5 GM in NS (IVPB) 100 ML IV SCH ×3 (01:46→17:59)
[2021-08-29 04:30] VITALS: BP 103/57
[2021-08-29] MEDS: metroNIDAZOLE 500MG/100ML IVPB 100 ML IV SCH ×3 (06:11→21:28)
[2021-08-29] MEDS: HYDROcodone/APAP 5 MG/325 MG (LORTAB) TAB PO PRN ×2 (06:23→10:56)
[2021-08-29 07:55] VITALS: BP 127/77
--- NOTE | 2021-08-29 10:48 | Progress Note - Surgery ---
VEL LOPEZ MED STUDENT 08/29/21 1048: Subjective Date Seen by a Provider: Aug 29, 2021 Time Seen by a Provider: 10:10 Subjective/Events-last exam POD 2 S/P Incision and drainage of perirectal abscess with washout and drain placement. Pt is lying in bed this morning. Had his ludwig removed yesterday. States he was doing really well with pain yesterday, got his pain meds today and is just having some mild pain. He is doing well with soft foods and having no nausea or vomiting. No problems with urination, States hes had a bowel movement and there was no blood in his stool. He just wants to know when he can have drain removed and go home. No signs of fever. Review of Systems General: No Chills HEENT: No Head Aches, No Visual Changes Pulmonary: No Dyspnea, No Cough Cardiovascular: No: Chest Pain, Palpitations Gastrointestinal: Other (Mild pain around surgical site); No: Nausea, Vomiting, Abdominal Pain, Diarrhea, Constipation Genitourinary: No Dysuria, No Frequency, No Incontinence Musculoskeletal: No: leg pain, foot pain Neurological: No: Weakness Focused Exam Lactate Level 08/27/21 07:52: Lactic Acid Level 1.41 Objective Exam Vital Signs Date Time Temp Pulse Resp B/P (MAP) Pulse Ox O2 Delivery O2 Flow Rate FiO2 08/29/21 08:00 98 Room Air 08/29/21 07:55 36.3 76 18 127/77 (94) 98 Room Air 08/29/21 04:30 36.0 66 20 103/57 (72) 99 Room Air 08/29/21 00:09 35.6 77 18 121/70 (87) 97 Room Air 08/28/21 19:53 36.2 97 18 120/70 (87) 98 Room Air 08/28/21 19:34 Room Air 08/28/21 16:03 36.0 99 18 130/74 (92) 100 Room Air 08/28/21 12:30 36.9 79 20 128/74 (92) 99 Room Air I & O 08/29/21 06:59 Intake Total 3560 ml Output Total 1250 ml Balance 2310 ml Capillary Refill : Less Than 3 Seconds General Appearance: No Apparent Distress, WD/WN HEENT: PERRL/EOMI, Pharynx Normal, Moist Mucous Membranes Respiratory: Chest Non Tender, Lungs Clear, Normal Breath Sounds, No Accessory Muscle Use, No Respiratory Distress Cardiovascular: Regular Rate, Rhythm, No Murmur, Normal Peripheral Pulses Peripheral Pulses: 2+ Radial Pulses (R), 2+ Radial Pulses (L) Gastrointestinal: normal bowel sounds, non tender, soft Extremity: Normal Capillary Refill, Normal Inspection (No gross deformities), Non Tender, No Calf Tenderness, No Pedal Edema Neurologic/Psychiatric: Alert, Oriented x3, Normal Mood/Affect Skin: Normal Color, Warm/Dry, Other (kareem-rectal incision with scant purulent drainage, boubacar drain sutured in place) Results Lab Microbiology 08/27/21 Gram Stain - Final, Resulted 08/27/21 Anaerobic Culture, Resulted Pending 08/27/21 Surgical Culture - Preliminary, Resulted Strep anginosus Escherichia coli 08/27/21 Blood Culture - Preliminary, Resulted No growth Assessment/Plan Assessment/Plan Assessment/Plan S/P Perirectal abscess drainage Sepsis secondary to abscess Ludwig Has been D/C'd. Continue with ABX and pain management. Pt is doing well pain junior. He is eating soft foods without difficulty, may have him continue on soft foods for a bit longer due to the nature of his surgery. DVT prophylaxis. Change dressings Once a day, Will become more difficult to maintain clean dressings as patient develops return of Bowel function. Encourage ambulation and IS use. Probably will be able to D/C on Tuesday if no complications. STACI ALARCON DO 08/29/21 1321: Subjective Time Seen by a Provider: 12:11 Subjective/Events-last exam Pt seen and examined, he states he is doing well and pain controlled. He had a BM, nurse states all she has seen when she changed dressing was serosanguinous drainage. He is urinating without problems. Review of Systems General: No Chills Pulmonary: No Dyspnea, No Cough Cardiovascular: No: Chest Pain, Palpitations Gastrointestinal: Other (Mild pain around surgical site); No: Nausea, Vomiting, Abdominal Pain Objective Exam General Appearance: No Apparent Distress, WD/WN Respiratory: Lungs Clear, Normal Breath Sounds, No Accessory Muscle Use, No Respiratory Distress Cardiovascular: Regular Rate, Rhythm, No Murmur Gastrointestinal: non tender, soft Skin: Other (kareem-rectal incision with scant purulent drainage, boubacar drain sutured in place) Assessment/Plan Assessment/Plan Assessment/Plan S/P Perirectal abscess drainage Sepsis secondary to abscess - resolved Ludwig Has been D/C'd. Continue with ABX and pain management. Pt is doing well pain junior. He is eating soft foods without difficulty, may have him continue on soft foods for a bit longer due to the nature of his surgery. DVT prophylaxis. Change dressings Once a day, Will become more difficult to maintain clean dressings as patient develops return of Bowel function. Encourage ambulation and IS use. Probably will be able to D/C on Tuesday if no complications. Supervisory-Addendum Brief Verification & Attestation Participated in pt care: history, MDM, physical Personally performed: exam, history, MDM, supervision of care Care discussed with: Medical Student Procedures: n/a Verification and Attestation of Medical Student E/M Service A medical student performed and documented this service. I then reviewed and verified all information documented by the medical student and made modifications to such information, when appropriate. I personally performed a physical exam, medical decision making and then discussed any differences between the notes and made revisions as necessary to create one note. Staci Alarcon , 08/29/21 , 13:21 VEL LOPEZ MED STUDENT Aug 29, 2021 10:48 STACI ALARCON DO Aug 29, 2021 13:21
[2021-08-29 11:50] VITALS: BP 126/75
[2021-08-29 16:00] VITALS: BP 132/73
[2021-08-29 20:34] VITALS: BP 119/66
[2021-08-30] VITALS: BP 121/70
[2021-08-30] MEDS: LACTATED RINGERS 1,000 ML IV SCH ×4 (00:29→18:42)
[2021-08-30] MEDS: HYDROcodone/APAP 5 MG/325 MG (LORTAB) TAB PO PRN ×2 (00:47→14:53)
[2021-08-30] MEDS: PIPERACILLIN SODIUM/TAZOBACTAM 4.5 GM in NS (IVPB) 100 ML IV SCH ×3 (00:48→17:08)
[2021-08-30 04:51] VITALS: BP 136/77
[2021-08-30] MEDS: metroNIDAZOLE 500MG/100ML IVPB 100 ML IV SCH ×3 (05:57→21:03)
[2021-08-30 07:54] VITALS: BP 135/82
--- NOTE | 2021-08-30 10:24 | Progress Note - Surgery ---
JOHNVEL MED STUDENT 08/30/21 1024: Subjective Date Seen by a Provider: Aug 30, 2021 Time Seen by a Provider: 09:45 Subjective/Events-last exam Pt had just showered this morning. States he is doing well, is having very little pain. Only mild discomfort. he is eating and drinking okay, no nausea or vomiting. Is handling solid foods well. No problems urinating, Had a couple more bowel movements since yesterday with no complication. No blood noted. He is ambulating around his room well. Review of Systems General: No Chills HEENT: No Head Aches, No Visual Changes Pulmonary: No Dyspnea, No Cough Cardiovascular: No: Chest Pain, Palpitations, Edema Gastrointestinal: No: Nausea, Vomiting, Abdominal Pain, Diarrhea, Constipation, Melena Genitourinary: No Dysuria, No Incontinence, No Hematuria Musculoskeletal: No: leg pain, foot pain Objective Exam Vital Signs Date Time Temp Pulse Resp B/P (MAP) Pulse Ox O2 Delivery O2 Flow Rate FiO2 08/30/21 08:00 Room Air 08/30/21 07:54 37.0 95 20 135/82 (99) 99 Room Air 08/30/21 04:51 36.1 81 20 136/77 (96) 99 Room Air 08/30/21 00:00 37.4 86 18 121/70 (87) 98 Room Air 08/29/21 20:34 36.9 91 18 119/66 (83) 98 Room Air 08/29/21 20:00 Room Air 08/29/21 19:38 98 Room Air 08/29/21 16:00 36.9 84 20 132/73 (92) 100 Room Air 08/29/21 11:50 36.6 70 18 126/75 (92) 98 Room Air I & O 08/30/21 07:00 Intake Total 1490 ml Balance 1490 ml Capillary Refill : Less Than 3 Seconds General Appearance: No Apparent Distress, WD/WN HEENT: PERRL/EOMI, Pharynx Normal, Moist Mucous Membranes Respiratory: Lungs Clear, Normal Breath Sounds, No Accessory Muscle Use, No Respiratory Distress Cardiovascular: Regular Rate, Rhythm, No Murmur, Normal Peripheral Pulses Peripheral Pulses: 2+ Radial Pulses (R), 2+ Radial Pulses (L) Gastrointestinal: normal bowel sounds, non tender, soft Extremity: Non Tender, No Calf Tenderness, No Pedal Edema Neurologic/Psychiatric: Alert, Oriented x3, Normal Mood/Affect Skin: Other (kareem-rectal incision with scant purulent drainage, boubacar drain sutured in place) Results Lab Microbiology 08/27/21 Gram Stain - Final, Resulted 08/27/21 Anaerobic Culture, Resulted Pending 08/27/21 Surgical Culture - Preliminary, Resulted Strep anginosus Escherichia coli Escherichia coli#2 08/27/21 Blood Culture - Preliminary, Resulted No growth Assessment/Plan Assessment/Plan Assessment/Plan S/P Perirectal abscess drainage Sepsis secondary to abscess - resolved Continue with ABX and pain management. Pt is doing well pain junior. He is eating solid foods without difficulty. DVT prophylaxis. Change dressings Once a day, Will become more difficult to maintain clean dressings as patient develops return of Bowel function. Encourage ambulation and IS use. Probably will be able to D/C on Tuesday if no complications. STACI ALARCON DO 08/30/21 1406: Subjective Time Seen by a Provider: 13:31 Subjective/Events-last exam Pt seen and examined, minimal pain and tolerating diet. Review of Systems General: No Chills Pulmonary: No Dyspnea, No Cough Cardiovascular: No: Chest Pain, Palpitations Gastrointestinal: No: Nausea, Vomiting, Abdominal Pain Objective Exam General Appearance: No Apparent Distress, WD/WN HEENT: Moist Mucous Membranes Respiratory: Lungs Clear, Normal Breath Sounds, No Accessory Muscle Use, No Respiratory Distress Cardiovascular: Regular Rate, Rhythm, No Murmur Gastrointestinal: soft Skin: Other (kareem-rectal incision with scant purulent drainage, boubacar drain sutured in place) Assessment/Plan Assessment/Plan Assessment/Plan S/P Perirectal abscess drainage Sepsis secondary to abscess - resolved Continue with ABX and pain management. Pt is doing well pain junior. He is eating solid foods without difficulty. DVT prophylaxis. Change dressings daily, will let Dr. Anuel friend tomorrow and probably will be able to D/C on Tuesday if no complications. Supervisory-Addendum Brief Verification & Attestation Participated in pt care: history, MDM, physical Personally performed: exam, history, MDM, supervision of care Care discussed with: Medical Student Procedures: n/a Verification and Attestation of Medical Student E/M Service A medical student performed and documented this service. I then reviewed and verified all information documented by the medical student and made modifications to such information, when appropriate. I personally performed a physical exam, medical decision making and then discussed any differences between the notes and made revisions as necessary to create one note. Staci Alarcon , 08/30/21 , 14:05 VEL LOPEZ MED STUDENT Aug 30, 2021 10:24 STACI ALARCON DO Aug 30, 2021 14:06
[2021-08-30 11:35] VITALS: BP 114/74
[2021-08-30 15:55] VITALS: BP 131/66
[2021-08-30 20:00] VITALS: BP 120/68
[2021-08-31] VITALS: BP 123/68
[2021-08-31] MEDS: HYDROcodone/APAP 5 MG/325 MG (LORTAB) TAB PO PRN (00:10)
[2021-08-31] MEDS: LACTATED RINGERS 1,000 ML IV SCH ×3 (00:47→14:15)
[2021-08-31] MEDS: PIPERACILLIN SODIUM/TAZOBACTAM 4.5 GM in NS (IVPB) 100 ML IV SCH ×2 (01:52→10:38)
[2021-08-31 03:23] VITALS: BP 121/69
[2021-08-31] MEDS: metroNIDAZOLE 500MG/100ML IVPB 100 ML IV SCH ×2 (05:56→13:57)
[2021-08-31 08:00] VITALS: BP 128/83
[2021-08-31 10:11] LABS: HEMATOCRIT 43 % (40-54); HEMOGLOBIN 14.6 g/dL (13.3-17.7); MEAN CORPUSCULAR HEMOGLOBIN 29 pg (25-34); MEAN CORPUSCULAR HGB CONC 34 g/dL (32-36); MEAN CORPUSCULAR VOLUME 87 fL (80-99); MEAN PLATELET VOLUME 9.8 fL (9.0-12.2); PLATELET COUNT 353 10^3/uL (130-400); WHITE BLOOD COUNT 9.9 10^3/uL (4.3-11.0)
[2021-08-31 10:32] LABS: CALCIUM 9.4 MG/DL (8.5-10.1); CREATININE SERUM 1.06 MG/DL (0.60-1.30); POTASSIUM 3.9 MMOL/L (3.6-5.0)
[2021-08-31 11:00] VITALS: BP 124/72
[2021-08-31] MEDS ORDERED: AMOX-358 PO (13:56)
[2021-08-31] MEDS ORDERED: ACHD5005 PO (13:56)
--- NOTE | 2021-08-31 13:58 | Discharge Inst-Simple/Standard ---
Discharge Inst-Standard Discharge Medications New, Converted or Re-Newed RX: Transmitted to Pharmacy Patient Instructions/Follow Up Plan of Care/Instructions/FU: [facility] office on Tuesday to remove drain. Dr. Anuel rodriguez 1 week. Drain to be removed Tuesday and then will arrange daily irrigation and packing. Activity as Tolerated: No Discharge Diet: Regular Diet Other Inst to Patient Follow up Appt: [facility] office on Tuesday to remove drain. Dr. Anuel rodriguez 1 week. Drain to be removed Tuesday and then will arrange daily irrigation and packing. Instructions: No strenuous activity. May shower in 24 hours, no tub bath or soaking. Use incentive spirometer at home as directed. No Smoking Skin/Wound Care: Wound care as noted above. Symptoms to Report: Appetite Changes, Extremity Discoloration, Numbness/Tingling, Swelling Increased, Bleeding Excessive, Eyesight Changes, Pain Increased, Urine Color Ch deo, Constipation(Persistent), Fever over 101 degree F, Pain/Pressure in chest, Urinating Difficulty, Cough Up/Vomit Blood, Heart Beat Irreg/Pounding, Pain/Pressure in jaw, Vaginal Bleeding Increase, Cramps in feet or legs, Lightheadedness, Pain/Pressure in shoulder, Diarrhea(Persistent), Memory Changes Suddenly, Questions/Concerns, Weight gain consecutive days, Dizziness/Fainting, Nausea/Vomiting, Shortness of Breath, Weight gain over 2 pounds If questions or concerns contact your physician Or seek help at emergency department. RICO HEATH DO Aug 31, 2021 13:58
[2021-08-31 15:27] VITALS: BP 124/72
== END 2021-08-31 15:50 | disposition home or self-care (01) | DRG 854 ==
LOC: ER 05:16 → 4TH 08:45
PROVIDERS: ADMIT Surgery; ATTEND Surgery
PROC: 0D9P00Z Drainage of Rectum with Drainage Device, Open Approach (ICD-10-PCS; principal; 2021-08-27 12:14)
DX: A41.9 Sepsis, unspecified organism (principal); K61.1 Rectal abscess; F17.210 Nicotine dependence, cigarettes, uncomplicated
CPT/HCPCS: 36415; 74018; 74177; 80048; 80053; 81000; 83605; 85007; 85027; 85610; 85730; 86141; 87040; 87070; 87075; 87076; 87077; 87184; 87186; 87205; 94760

== ENCOUNTER → 2021-09-14 | Outpatient (CLI) | payer SELFPAY ==
[~2021-09-14] MED LIST: ACHD5005 PO; AMOX-358 PO
--- NOTE | 2021-09-14 11:42 | Diagnostic Imaging Report ---
PROCEDURE: CT pelvis without contrast. TECHNIQUE: Multiple contiguous axial images were obtained through the pelvis without the use of intravenous contrast. Sagittal and coronal reformations were performed. Auto Exposure Controls were utilized during the CT exam to meet ALARA standards for radiation dose reduction. INDICATION: Recent perirectal abscess followup. COMPARISON: 08/27/2021. FINDINGS: There has been marked interval improvement in the perirectal inflammation and edema with interval resolution of the loculated fluid collection involving the perirectal region. Phlegmon/small abscess is seen in the perirectal region right of midline measuring 2.2 x 1.1 cm. No evidence of extension into the pelvic cavity itself. No free fluid or free air. No bowel obstruction. The urinary bladder is unremarkable. No acute osseous abnormalities. IMPRESSION: 1. Marked improvement in the perirectal abscess and inflammation compared to the prior exam with small residual abscess or phlegmon in the perirectal region right of midline. Dictated by: Dictated on workstation # [id number]
== END ==
LOC: RAD 10:40
PROVIDERS: ATTEND Surgery
DX: K62.89 Other specified diseases of anus and rectum (principal)
CPT/HCPCS: 72192

== ENCOUNTER → 2021-10-26 | Outpatient (CLI) | payer SELFPAY | END | disposition home or self-care (01) | LOC: PREOP 05:40 | PROVIDERS: ATTEND Surgery | DX: Z01.818 Encounter for other preprocedural examination (principal) ==